=== PATIENT | male | born 1985 | race Two or more races ===

== ENCOUNTER 2018-03-03 20:52 | Emergency (ER) | payer OTHER ==
[2018-03-03] MEDS ORDERED: LET GEL TOPICAL 1 EA SYR TP ONE ×2 (21:19→21:20)
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
[2018-03-03 22:27] VITALS: BP 124/74
== END 2018-03-03 22:26 | disposition home or self-care (01) ==
PROC: 0HQ1XZZ Repair Face Skin, External Approach (ICD-10-PCS; principal; 2018-03-03)
DX: S01.81XA Laceration without foreign body of other part of head, initial encounter (principal); S50.811A Abrasion of right forearm, initial encounter; S50.812A Abrasion of left forearm, initial encounter; V18.4XXA Pedal cycle driver injured in noncollision transport accident in traffic accident, initial encounter; Y99.8 Other external cause status